=== PATIENT | male | born 1995 | race Two or more races ===

== ENCOUNTER 2021-04-02 19:41 | Emergency (ER) | payer MEDICAID, OTHER ==
[~2021-04-02] VITALS: Ht 170.2 cm; Wt 81.6 kg
[2021-04-02] MEDS ORDERED: ONDANSETRON HCL 4 MG/2 ML VIAL ONE (23:11)
[2021-04-02] MEDS ORDERED: ONDANSETRON HCL 4 MG/2 ML VIAL IV ONE (23:15)
[2021-04-03 03:11] VITALS: BP 125/73
== END 2021-04-03 04:33 | disposition home or self-care (01) ==
LOC: ER 19:45
DX: S05.11XA Contusion of eyeball and orbital tissues, right eye, initial encounter (principal); Y04.0XXA Assault by unarmed brawl or fight, initial encounter; Y93.01 Activity, walking, marching and hiking; Y92.89 Other specified places as the place of occurrence of the external cause; Y99.8 Other external cause status
CPT/HCPCS: 70450; 70486; 71250; 72125; 73060; 96374; 99285; J2405